=== PATIENT | male | born 1950 | race Caucasian/White ===

== ENCOUNTER 2020-01-14 14:52 | Inpatient (IN) | payer BC ==
[~2020-01-14] VITALS: Ht 175.3 cm; Wt 104.8 kg
[2020-01-14 15:20] VITALS: BP_SYST 157
--- NOTE | 2020-01-14 15:33 | NUR ---
Patient to ER bed 1 to gown for evaluation. Side rails up. Report given to HENRRY Henning.
--- NOTE | 2020-01-14 15:35 | NUR ---
PT CAME TO ER FOR L KNEE RED AND SWOLLEN AND BLEEDING. PT C/O PAIN 4/10.
--- NOTE | 2020-01-14 15:49 | NUR ---
ER at bedside examining patient.
[2020-01-14] MEDS ORDERED: NS 1000 ML IV.SOLN IV ONE (16:00)
[2020-01-14] MEDS ORDERED: ONDANSETRON HCL 4 MG/2 ML VIAL IVP ONE (16:00)
[2020-01-14] MEDS ORDERED: MORPHINE 2 MG/ML INJ. SYRINGE IVP ONE (16:00)
[2020-01-14] MEDS ORDERED: PIPERACILLIN/TAZO 3.38 GM in D5W 50 ML IV ONE (16:00)
[2020-01-14] MEDS ORDERED: VANCOMYCIN HCL 1,000 MG in D5W 250 ML IV ONE (16:00)
[2020-01-14 16:16] LABS: BASOPHILS # (AUTO) 0.1 K/uL (0.0-0.2); BASOPHILS % (AUTO) 0.6 % (0.0-2.0); EOSINOPHILS # (AUTO) 0.1 K/uL (0.0-0.4); HEMOGLOBIN 14.9 g/dL (14.0-18.0); LYMPHOCYTES # (AUTO) 1.2 K/uL (1.0-5.5); LYMPHOCYTES % (AUTO) 10.2 % (20.5-51.5); MEAN CORPUSCULAR HEMOGLOBIN 29 pg (27-31); MEAN CORPUSCULAR HGB CONC 34 % (32-36); MEAN CORPUSCULAR VOLUME 86 fL (79.0-98.0); MONOCYTES # (AUTO) 1.1 K/uL (0.0-1.0); MONOCYTES % (AUTO) 9.2 % (1.7-9.3); NEUTROPHILS # (AUTO) 9.3 K/uL (1.8-7.7); PLATELET COUNT (AUTO) 247 K/uL (130-430); RED BLOOD CELL COUNT(AUTO) 5.12 MIL/uL (4.2-6.2); RED CELL DISTRIBUTION WIDTH 13.7 % (9.0-15.0); WHITE BLOOD COUNT (AUTO) 11.8 K/uL (4.8-10.8)
[2020-01-14] MEDS ORDERED: PIPERACILLIN/TAZOBACTAM 3.375 GM/VIAL (ZOSYN) IV ONE (16:21)
[2020-01-14 16:39] LABS: CALCIUM 8.9 mg/dL (8.4-11.0); CREATININE 1.06 mg/dL (0.55-1.30); POTASSIUM 4.6 mmol/L (3.5-5.1)
[2020-01-14 16:43] LABS: INR 1.1 (0.80-1.20); PROTHROMBIN TIME 10.7 SECS (9.5-12.5)
--- NOTE | 2020-01-14 17:00 | NUR ---
PT RESTING IN BED NO C/O PAIN AT THIS TIME. AWAITING LAB RESULTS BEFORE GOING TO CT.
--- NOTE | 2020-01-14 17:23 | NUR ---
PT ZIGZAG APPLIQUER HAD TO LEAVE BEDSIDE FOR FAMILY MATTERS. NAME AND PHONE NUMBER (MALVIN QUEZADA [phone]). WISHES TO BE CALLED WHEN TRANSFERRED.
[2020-01-14] MEDS ORDERED: IOHEXOL 100 ML IV ONE (17:38)
[2020-01-14] MEDS ORDERED: VANCOMYCIN HCL 1000 MG/VIAL IV ONE (18:27)
--- NOTE | 2020-01-14 18:30 | NUR ---
PT IN [place] NO PAIN REPORTED VSS
--- NOTE | 2020-01-14 19:28 | NUR ---
VSS No s/s of acute distress. IVF + med well tolerated
--- NOTE | 2020-01-14 20:20 | NUR ---
Patient will be admitted to care of Dr. Childers. Admitted to Medsurg unit. Will go to room 132B. Belongings list completed. Complete and up to date summary report printed. SBAR report to be given at bedside with opportunity for questions.
--- NOTE | 2020-01-14 20:30 | NUR ---
ADMISSION NOTE Received patient from ER via yudith, received report from HENRRY MORRIS. Patient admitted with diagnosis of KNEE ABSCESS. Patient oriented to hospital routine, call light, toileting and safety-patient verbalized understanding.
[2020-01-14 20:58] VITALS: BP_SYST 151
[2020-01-14 21:00] VITALS: BP_SYST 146
--- NOTE | 2020-01-14 22:30 | NUR ---
SEEN & EXAMINED BY DR. TOBAR WITH NEW ORDERS.
[2020-01-14] MEDS ORDERED: ALBUTEROL SULFATE 0.083% 2.5 MG/3 ML VIAL.NEB INH PRN (22:45)
[2020-01-14] MEDS ORDERED: HYDROcodone/ACETAMIN 5-325 MG TAB (NORCO/ VICODIN) PO PRN (22:45)
[2020-01-14 22:58] VITALS: BP_SYST 151
[2020-01-15] MEDS: NACL 0.9% 1,000 ML IV SCH ×3 (00:01→17:53)
--- NOTE | 2020-01-15 00:15 | NUR ---
FLUIDS FROM LEFT KNEE ABSCESS SENT TO LAB.
[2020-01-15] MEDS ORDERED: PIPERACILLIN/TAZOBACTAM 3.375 GM/VIAL (ZOSYN) IV ONE (00:35)
[2020-01-15] MEDS ORDERED: VANCOMYCIN HCL 1000 MG/VIAL IV ONE (00:35)
[2020-01-15] MEDS ORDERED: VANCOMYCIN HCL 500 MG/VIAL IV ONE (00:35)
[2020-01-15] MEDS: PIPERACILLIN/TAZO 3.375/DEX-IS 50 ML IV SCH ×2 (00:55→05:44)
--- NOTE | 2020-01-15 01:16 | NUR ---
CONSULT: CONSULT CALLED FOR DR. KAY I SPOKE WITH CARMEN SHIRLEY IS BARK TANNER FOR THIS MORNING REASON FOR CONSULT: KNEE ABSCESS REQUESTING CONSULT: DR. NICE HEEL CASER PHONE NUMBER: [phone]
--- NOTE | 2020-01-15 02:00 | NUR ---
RESTING COMFORTABLY WITH IVF NS @ 100 ML/HR INFUSING WELL.
[2020-01-15 02:03] VITALS: BP_SYST 139
--- NOTE | 2020-01-15 04:00 | NUR ---
OOB TO THE BR & BACK TO BED WITH CANE.
[2020-01-15] MEDS ORDERED: VANCOMYCIN HCL 1,500 MG in NS 250 ML IV ONE (06:00)
--- NOTE | 2020-01-15 06:45 | NUR ---
ENDORSED IN NO ACUTE DISTRESS.IF INFUSING WELL.SAFETY MAINTAINED.
[2020-01-15 07:15] LABS: BASOPHILS % (AUTO) 0.5 % (0.0-2.0); EOSINOPHILS # (AUTO) 0.2 K/uL (0.0-0.4); EOSINOPHILS % (AUTO) 2.5 % (0.0-4.0); HEMATOCRIT 40.2 % (36-54); HEMOGLOBIN 13.6 g/dL (14.0-18.0); LYMPHOCYTES # (AUTO) 1.2 K/uL (1.0-5.5); LYMPHOCYTES % (AUTO) 15.3 % (20.5-51.5); MEAN CORPUSCULAR HEMOGLOBIN 29 pg (27-31); MEAN CORPUSCULAR HGB CONC 34 % (32-36); MEAN CORPUSCULAR VOLUME 86 fL (79.0-98.0); MONOCYTES # (AUTO) 0.8 K/uL (0.0-1.0); MONOCYTES % (AUTO) 9.5 % (1.7-9.3); NEUTROPHILS # (AUTO) 5.7 K/uL (1.8-7.7); NEUTROPHILS % (AUTO) 72.2 % (40.0-70.0); PLATELET COUNT (AUTO) 223 K/uL (130-430); RED BLOOD CELL COUNT(AUTO) 4.69 MIL/uL (4.2-6.2); RED CELL DISTRIBUTION WIDTH 13.4 % (9.0-15.0); WHITE BLOOD COUNT (AUTO) 7.9 K/uL (4.8-10.8)
--- NOTE | 2020-01-15 07:25 | NUR ---
INITIAL NOTE PT RESTING QUIETLY IN BED, ON ROOM AIR. IVF INFUSING WELL. CALL LIGHT WITHIN REACH, BED IN LOW AND LOCKED POSITION WITH BED ALARM ON.
[2020-01-15 07:27] LABS: ALBUMIN 2.8 g/dL (3.4-4.8); CALCIUM 8.4 mg/dL (8.4-11.0); POTASSIUM 4.4 mmol/L (3.5-5.1); TOTAL BILIRUBIN 0.7 mg/dL (0.0-1.0)
[2020-01-15 08:00] VITALS: BP_SYST 148
--- NOTE | 2020-01-15 09:20 | NUR ---
GENERAL SERVICE OFFICER-MALVIN QUEZADA IF PT IS DISCHARGE, [facility] WOULD BE THE POINT OF CONTACT SHE WILL BE PICKING PT UP. CONTACT INFO [phone]
[2020-01-15] MEDS: ENOXAPARIN SODIUM 40 MG/0.4 ML SYRINGE SUBCUT SCH (09:27)
--- NOTE | 2020-01-15 09:30 | NUR ---
RN ROUNDS PT RESTING QUIETLY, NO CHANGE IN ASSESSMENT.
--- NOTE | 2020-01-15 10:50 | NUR ---
WOUND EVALUATION: Wound Consult received from Dr. Zepeda. Thank you Dr. Zepeda for the consult. Patient received in a Bradford Bed with an IsoFlex JAMEY mattress, awake, alert, and oriented. Patient is unable to turn in bed independently. Nirav Score is a 20. Past Medical History: Hypertension. Admitted for left knee swelling, erythema, pain and purulent drainage. Recent Labs: WBC is 7.9, RBC 4.69, hemoglobin 13.6, hematocrit 40.2, sodium 134, BUN 14, creatinine 1.00, GFR 79, glucose 155, albumin 2.8. Microbiology: Blood culture results 2 in progress. Wound culture results in progress. Intrinsic factors that delay wound healing: Hyperglycemia, Hypoalbuminemia. Extrinsic factors that delay wound healing: Decreased mobility. Wound Assessment: 1. Left Knee: Abscess, present on admission. Wound bed is not visible. Small dark discolored area measures 0.7 cm x 0.5 cm. No odor, moderate sanguineous drainage. Ashli-wound intact. Surrounding tissue has erythema, calor, and nonpitting edema. Recommend: Cleanse wound with normal saline. Apply SurePrep to ashli-wound. Cover with alginate dressing, then foam dressing. Perform wound care daily, and as needed for dressing soiling or dislodgement. Also recommend: Encourage and assist patient as needed with repositioning every 2 hours with pillow support and off-load pressure areas with pillows for pressure re-distribution. Offload, elevate and float bilateral heels with pillows. Perform skin care and monitor skin integrity Q shift. Use moisture barrier cream on buttocks and other moisture susceptible areas QID and as needed for soiling.
--- NOTE | 2020-01-15 11:30 | NUR ---
RN ROUNDS PT AWAKE, FRIENDS AT BEDSIDE. PT DENIES ANY PAIN OR DISCOMFORT AT THIS TIME.
--- NOTE | 2020-01-15 11:40 | NUR ---
ID CONSULT CALLED REASON FOR CONSULTATION:ABSCESS WAS CONSULT CALLED?Y PERSON WHO WAS NOTIFIEDlDCOURT [facility] CONSULTING PHYSICIAN:COURT HICKS ONLINE CONTENT DEVELOPER SPECIALTY:ID ONLINE CONTENT DEVELOPER PHONE NUMBER:[phone]
[2020-01-15 12:00] VITALS: BP_SYST 144
--- NOTE | 2020-01-15 13:30 | NUR ---
RN ROUNDS PT RESTING QUIETLY, NO ACUTE DISTRESS NOTED, BREATHING EVEN AND UNLABORED. WILL CONTINUE TO MONITOR.
--- NOTE | 2020-01-15 15:30 | NUR ---
RN ROUNDS PT RESTING QUIETLY, NO CHANGE IN ASSESSMENT.
[2020-01-15 16:00] VITALS: BP_SYST 156
--- NOTE | 2020-01-15 17:30 | NUR ---
RN ROUNDS PT RESTING QUIETLY, NO CHANGE IN ASSESSMENT. WILL CONTINUE TO MONITOR.
[2020-01-15] MEDS: CLINDAMYCIN 600 MG in D5W 50 ML IV SCH (17:53)
--- NOTE | 2020-01-15 18:24 | NUR ---
CLOSING NOTE PT RESTING IN BED, NO ACUTE DISTRESS NOTED, BREATHING EVEN AND UNLABORED. IVF INFUSING WELL. CALL LIGHT WITHIN REACH, BED IN LOW AND LOCKED POSITION. EDUCATED PT ON SAFETY AND USE OF CALL LIGHT. PT VERBALIZED UNDERSTANDING, PT REFUSING CALL LIGHT AT THIS TIME. LEFT LEG ELEVATED, DRESSING DRY AND INTACT. ALL NEEDS MET THROUGHOUT SHIFT. WILL CONTINUE TO MONITOR UNTIL PT CARE IS ENDORSED TO DIRECTOR OF GIFT PLANNING RN.
[2020-01-15 19:00] VITALS: BP_SYST 157
[2020-01-15 20:00] VITALS: BP_SYST 157
[2020-01-16] VITALS (7 sets, daily range): BP systolic 148–179
[2020-01-16] MEDS: CLINDAMYCIN 600 MG in D5W 50 ML IV SCH ×5 (00:21→22:19)
--- NOTE | 2020-01-16 00:55 | NUR ---
Josephine of care: Received report from HENRRY Pozo. Patient is sleeping comfortably in bed, no acute distress. Tolerating room air. IV fluids infusing as ordered. Left knee dressing clean, dry, intact. Call light with patient. Safety and fall precautions in place. Will continue with plan of care.
--- NOTE | 2020-01-16 01:42 | NUR ---
IV RE-INSERTION: Patient stated he accidentally pulled out his IV. Upon assessment, IV catheter was dislodged, wholly intact. Restarted on left AC, 20 gauge. Successful after 1 attempt. Resumed IVF as ordered. Will observe for any signs of infiltration.
[2020-01-16] MEDS: NACL 0.9% 1,000 ML IV SCH ×3 (01:48→22:20)
--- NOTE | 2020-01-16 03:35 | NUR ---
Rounds: Patient is sleeping. No acute distress. Tolerating room air. Call light with patient. Will continue monitoring.
[2020-01-16] MEDS: VANCOMYCIN HCL 1,500 MG in NS 500 ML IV SCH (06:10)
--- NOTE | 2020-01-16 06:30 | NUR ---
Closing note: Patient is sleeping in bed, no acute distress. Tolerating room air. IV fluids infusing well, no infiltration. Patient denies pain or discomfort. Left knee dressing clean, dry, intact. All needs met. Safety, fall precautions in place. Will endorse care to dayshift RN.
--- NOTE | 2020-01-16 07:15 | NUR ---
opening note patient is resting in bed, alert and oriented, educated bronze chaser light system and plan of care, patient verbalized understanding, no signs of distress at this time, IV antibiotic running at this time and patient tolerating well, no other needs addressed at this time, bed in lowest position, bed alarm on, call light within reach, three side rails up, fall/safety precautions in place.
[2020-01-16] MEDS: ENOXAPARIN SODIUM 40 MG/0.4 ML SYRINGE SUBCUT SCH (08:31)
--- NOTE | 2020-01-16 10:28 | NUR ---
rounds patient is resting in bed, eyes closed breathing easy and nonlabored, no signs of distress at this time, no needs addressed at this time, fall/safety precautions in place.
--- NOTE | 2020-01-16 12:00 | NUR ---
wound care wound care done per guidelines, patient tolerated well, linen was changed due to soilage of dressing, no signs of distress at this time, no other needs addressed at this time, fall/safety precautions in place.
--- NOTE | 2020-01-16 14:07 | NUR ---
Surgery consult called: for Dr. Edward Howard, regarding left knee abscess, ordered by Dr. Zepeda, spoke with Mercedes.
--- NOTE | 2020-01-16 14:14 | NUR ---
rounds patient is resting in bed, eyes closed breathing easy and nonlabored, no signs of distress at this time, urinal emptied, no other needs addressed at this time, fall/safety precautions in place.
[2020-01-16] MEDS ORDERED: HYDROmorphone 1 MG INJ. 1 MG/ML AMPUL IVP ONE (15:45)
--- NOTE | 2020-01-16 16:15 | NUR ---
incision and drainage, prn hydralazine Dr Cornell did procedure at the bedside, patient tolerated well, procedure information and consent was signed and discussed with patient, Dr Cornell ordered one time prn dilaudid for breakthrough pain, patient has refused it at this time, patient's BP was elevated and educated on prn hydralazine use and side effects, patient verbalized understanding, tolerated will, will continue to monitor. Dr Cornell said for packing to be taken out and replaced tomorrow morning, but changed gauze and abdominal pad prn for soilage.
[2020-01-16] MEDS: hydrALAZINE HCL 20 MG/ML VIAL IVP PRN (16:17)
--- NOTE | 2020-01-16 18:57 | NUR ---
closing note patient is resting in bed, alert and oriented, no signs of distress at this time, IVF running at this time and patient tolerating well, no other needs addressed at this time, bed in lowest position, bed alarm on, call light within reach, three side rails up, fall/safety precautions in place. Patient refuses any pain medication at the time, states that the highest his pain gets is 2/10. per Dr Eastman, keep leg elevated, he ordered a kpad but there is none available on the unit. will endorse care to manufacturing shift supervisor nurse, monitor BP and give hydralazine prn, patient needs assistance when going to the bathroom. Dr Cornell said to change packing tomorrow, but prior to discharge to remove packing and just cover with gauz/pad and reinforce with tape.
[2020-01-17 00:55] VITALS: BP_SYST 170
[2020-01-17] MEDS: hydrALAZINE HCL 20 MG/ML VIAL IVP PRN ×2 (01:04→20:58)
[2020-01-17] MEDS: VANCOMYCIN HCL 1,500 MG in NS 500 ML IV SCH (05:44)
[2020-01-17] MEDS: HYDROcodone/ACETAMIN 10-325 MG TAB PO PRN ×2 (05:49→20:59)
[2020-01-17] MEDS: CLINDAMYCIN 600 MG in D5W 50 ML IV SCH ×2 (05:49→11:55)
[2020-01-17 07:27] VITALS: BP_SYST 178
--- NOTE | 2020-01-17 07:30 | NUR ---
OPENING NOTES: RECEIVED PATIENT FROM OWNER PROFESSIONAL ENGINEER NURSE. PATIENT IS ASLEEP LAYING DOWN IN BED. PATIENT IS TOLERATING OXYGEN ON ROOM AIR WITH NO SIGNS OF DISTRESS OR SHORTNESS OF BREATH NOTED. IV SITE IS PATENT WITH NO SIGNS OF INFILTRATION NOTED. PATIENT IN STABLE CONDITION. SAFETY, FALL AND ASPIRATION PRECAUTIONS ARE IN PLACE. BED LOCKED IN LOWEST POSITION WITH CALL LIGHT IN REACH. WILL CONTINUE TO MONITOR PATIENT FOR ANY CHANGES.
[2020-01-17 08:00] VITALS: BP_SYST 155
[2020-01-17] MEDS: ENOXAPARIN SODIUM 40 MG/0.4 ML SYRINGE SUBCUT SCH (08:56)
--- NOTE | 2020-01-17 10:15 | NUR ---
RN ROUNDS: PATIENT IS AWAKE AND ALERT x4 LAYING DOWN IN BED. PATIENT DENIES ANY PAIN AT THE MOMENT. NO SIGNS OF DISTRESS OR SHORTNESS OF BREATH NOTED. PATIENT IN STABLE CONDITION. WILL CONTINUE TO MONITOR PATIENT FOR ANY CHANGES.
[2020-01-17] MEDS: NACL 0.9% 1,000 ML IV SCH ×2 (10:24→19:00)
[2020-01-17 12:00] VITALS: BP_SYST 137; BP_SYST 142
--- NOTE | 2020-01-17 12:33 | NUR ---
RN ROUNDS: PATIENT IS AWAKE AND ALERT x4 LAYING DOWN IN BED. PATIENT DENIES ANY PAIN AT THE MOMENT. WOUND CARE PERFORMED. PATIENT TOLERATED IT WELL. NO SIGNS OF DISTRESS OR SHORTNESS OF BREATH NOTED. PATIENT IN STABLE CONDITION. WILL CONTINUE TO MONITOR PATIENT FOR ANY CHANGES.
--- NOTE | 2020-01-17 14:30 | NUR ---
RN ROUNDS: PATIENT IS ASLEEP LAYING DOWN IN BED. NO SIGNS OF DISTRESS OR SHORTNESS OF BREATH NOTED. IV SITE IS PATENT WITH NO SIGNS OF INFILTRATION NOTED. PATIENT IN STABLE CONDITION. WILL CONTINUE TO MONITOR PATIENT FOR ANY CHANGES.
--- NOTE | 2020-01-17 16:15 | NUR ---
RN ROUNDS: PATIENT IS ASLEEP LAYING DOWN IN BED. PATIENT DENIES ANY PAIN AT THE MOMENT. IV SITE IS PATENT WITH NO SIGNS OF INFILTRATION NOTED. PATIENT IN STABLE CONDITION. WILL CONTINUE TO MONITOR PATIENT FOR ANY CHANGES.
[2020-01-17 16:19] VITALS: BP_SYST 137
--- NOTE | 2020-01-17 17:24 | NUR ---
Dietitian Recommendations * Recommend cardiac diet w/ Denys BID (supplement provides an additional ~180 kcal/day, 5 gm protein/day) MELISSA RD Please refer to Nutrition Assessment for details. Addendum: 01/17/20 at [address] Amended: Links added.
[2020-01-17] MEDS ORDERED: VANCOMYCIN HCL 1,250 MG in NS 250 ML IV SCH (18:00)
--- NOTE | 2020-01-17 18:29 | NUR ---
CLOSING NOTES: PATIENT IS ASLEEP LAYING DOWN IN BED. PATIENT IS TOLERATING OXYGEN ON ROOM AIR WITH NO SIGNS OF DISTRESS OR SHORTNESS OF BREATH NOTED. IV SITE IS PATENT WITH NO SIGNS OF INFILTRATION NOTED. PATIENT IN STABLE CONDITION. SAFETY, FALL AND ASPIRATION PRECAUTIONS REMAINED IN PLACE THROUGHOUT THE SHIFT. BED LOCKED IN LOWEST POSITION WITH CALL LIGHT IN REACH. WILL ENDORSE PATIENT CARE TO ONCOMING DIVISION TRAFFIC SUPERINTENDENT NURSE.
--- NOTE | 2020-01-17 20:00 | NUR ---
RECEIVED PT IN BED V/S AND ASSESSMENT DONE ,BP 178 /95 MEDS GIVEN FOR SAME WITH GOOD EFFECT REPOSITION BONNY COMFORTABLE,NO DISTRESS NOTED AT TIME .
[2020-01-17] MEDS: ceFAZolin SODIUM 1 GM in D5W 50 ML IV SCH (21:07)
[2020-01-18 01:17] VITALS: BP_SYST 160
--- NOTE | 2020-01-18 04:00 | NUR ---
PT VERY UPSET AT HIS ROOM CHANGE AND WANT TO BE MOVED OUT OF PRESENT ROOM BECAUSE OF THE SMELL OF STOOL FROM THE OTHER PT ,
[2020-01-18] MEDS: NACL 0.9% 1,000 ML IV SCH ×2 (06:23→16:45)
[2020-01-18] MEDS: ceFAZolin SODIUM 1 GM in D5W 50 ML IV SCH ×2 (06:23→14:00)
[2020-01-18 08:12] VITALS: BP_SYST 165
--- NOTE | 2020-01-18 08:15 | NUR ---
opening, received pt in bed, pt is aaox4, pt upset due to room issues, informed propellant charge loader zeny, pt denies pain, no sob, vitals wnl, no fever. call light in reach, bed in low position. left knee dressing intact and dry, no bleeding noted. swelling noted on left leg. call light in reach, bed in low position. will cont to monitor.
[2020-01-18] MEDS: ENOXAPARIN SODIUM 40 MG/0.4 ML SYRINGE SUBCUT SCH (08:50)
[2020-01-18] MEDS: hydrALAZINE HCL 20 MG/ML VIAL IVP PRN (09:11)
--- NOTE | 2020-01-18 10:40 | NUR ---
pt resting in bed , no c/o pain.
[2020-01-18] MEDS ORDERED: CEPH-568 PO (13:15)
[2020-01-18] MEDS ORDERED: HYDR-4272 PO (13:15)
[2020-01-18 13:24] VITALS: BP_SYST 144
--- NOTE | 2020-01-18 13:53 | NUR ---
PT IN BED, RESTING, INFORMED PT THAT WE ARE CALLING [facility] SO THEY CAN ARRANGE THE HOME HEALTH.
--- NOTE | 2020-01-18 15:03 | NUR ---
ATTENDING MD DR RICHARDSON WAS CALLED RE: WOUND CARE FOR HOME INSTRUCTIONS. SPOKE TO [facility]
[2020-01-18 16:29] VITALS: BP_SYST 154
[2020-01-18 17:34] VITALS: BP_SYST 154
--- NOTE | 2020-01-18 18:45 | NUR ---
HOME HEALTH [employer]UR[employer] CALLED SAL AND SET UP START OF SERVICE FOR 01/20/2020 WITH ([facility]) [phone] THEY WILL CALL PT TO SET UP A TIME. BEFORE THAT DATE
--- NOTE | 2020-01-18 19:21 | NUR ---
D/C Patient Patient given medication reconciliation form and D/C instructions. Exit Care provided. Patient verbalized understanding. MD discussed with patient the results and treatment provided. Ambulatory with steady gait for discharge to home. Patient in stable condition, ID band removed. IV catheter removed, intact and dressing applied, no active bleeding. Rx of KEFLEX AND NORCO given. Patient educated on pain management. All belongings sent with patient. PT'S MACHINE RUG CLEANER AWARE OF THE DISCHARGE. INFORMATION ABOUT HOME [facility] NURSE GIVEN TO PATIENT.
--- NOTE | 2020-01-28 14:41 | NUR ---
Discharge Follow Up Phone Call Phoned patient, , and spoke with Lauren. She stated that patient is improving. He filled his prescriptions and is taking his medications as directed. He has a follow up appointment with a new PCP on 02/06/20. [facility] has been visiting for wound care and PT and have reported the wound is improving. No questions or concerns.
== END 2020-01-18 19:00 | disposition home health service (06) | DRG 558 ==
LOC: SED 14:52 → SMU 19:23
PROVIDERS: ADMIT Internal Medicine Hospice and Palliative Medicine; ATTEND Internal Medicine Hospice and Palliative Medicine
PROC: 0H9LXZZ Drainage of Left Lower Leg Skin, External Approach (ICD-10-PCS; principal; 2020-01-16)
DX: M70.42 Prepatellar bursitis, left knee (principal); L03.116 Cellulitis of left lower limb; L02.416 Cutaneous abscess of left lower limb; B95.61 Methicillin susceptible Staphylococcus aureus infection as the cause of diseases classified elsewhere; I10 Essential (primary) hypertension; M25.462 Effusion, left knee; W18.39XA Other fall on same level, initial encounter; Y93.89 Activity, other specified; Y92.89 Other specified places as the place of occurrence of the external cause; Y99.8 Other external cause status
CPT/HCPCS: 36415; 73700-TC; 80048; 80053; 80202-TC; 83605; 85025; 85610-TC; 85730-TC; 87040-TC; 87070-TC; 87075-TC; 87081; 87186-TC; 96365; 96366; 96367; 99285; J0360; J0690; J1170; J1650; J2270; J2405; J2543; J3370; J3490; J7030; J7040; J7050; J7060; Q9967